=== PATIENT | female | born 1990 | race Hispanic/Latino ===

== ENCOUNTER 2017-12-25 13:39 | Emergency (ER) | payer SELFPAY ==
[2017-12-25 14:28] LABS: #Basophils 0.1 thou/uL (0.0-0.2); #Eosinphils 0.1 thou/uL (0.0-0.7); #Lymphocytes 2.5 thou/uL (1.20-3.40); #Monocytes 0.9 thou/uL (0.11-0.59); #Neutrophils 6.8 thou/uL (1.40-6.50); %Basophils 1.1 % (0.0-1.0); %Eosinophils 0.7 % (0.0-10.0); %Lymphocytes 23.9 % (21.0-51.0); %Monocytes 8.4 % (0.0-10.0); Hemoglobin 14.4 g/dL (12.0-16.0); Mean Corpuscular HGB CONC 36.2 g/dL (32.0-36.0); Mean Corpuscular Hemoglobin 30.2 pg (27.0-31.0); Mean Corpuscular Volume 83.6 fL (78.0-98.0); Mean Platelet Volume 6.5 fL (7.4-10.4); Platelet Count 257 thou/uL (130-400); RBC Distribution Width 11.9 % (11.5-14.5); Red Blood Cell (RBC) Count 4.78 mill/uL (4.20-5.40); White Blood Cell (WBC) Count 10.4 thou/uL (4.8-10.8)
[2017-12-25 14:49] LABS: ALT (SGPT) 42 U/L (8-55); AST (SGOT) 23 U/L (5-34); Albumin 4.6 g/dL (3.5-5.0); Alkaline Phosphatase 61 U/L (40-150); Anion Gap 9 mmol/L (10-20); BUN (Urea Nitrogen) 7 mg/dL (7.0-18.7); Bilirubin, Total 0.6 mg/dL (0.2-1.2); Calc. Creatinine Clearance 0 mL/min (70-130); Calcium 9.7 mg/dL (7.8-10.44); Carbon Dioxide 27 mmol/L (22-29); Chloride 107 mmol/L (98-107); Estimated GFR-MDRD Greater than 90; Globulin 2.5 g/dL (2.4-3.5); Glucose 96 mg/dL (70-105); Potassium 3.6 mmol/L (3.5-5.1); Protein, Total 7.1 g/dL (6.0-8.3); Sodium 139 mmol/L (136-145)
[2017-12-25 15:25] LABS: Bilirubin Negative (Negative); Blood, Urine Negative (Negative); Clarity CLEAR (Clear); Glucose, Urine (Dipstick) Negative (Negative); Leukocyte Negative (Negative); Nitrite Negative (Negative); Protein, Urine (Dipstick) Negative (Neg-Trace); Specific Gravity, Urine 1.005 (1.002-1.036); Urobilinogen 0.2 mg/dL (0.2-1.0); pH, Urine 6.5 (5.0-9.0)
--- NOTE | 2017-12-25 15:35 | ULT ---
TRANSABDOMINAL PELVIC ULTRASOUND WITH [place]RIAGA SCALE AND COLOR FLOW AND SPECTRAL DOPPLER: HISTORY: Abdominal pain, cramping, and vaginal bleeding. FINDINGS: A single live intrauterine gestation is seen with measurements corresponding an estimated gestational age of 6 weeks and GERI of 08/20/18. The crown-rump length measures 0.31 cm, gestational sac diameter is 1.31 cm, and yolk sac diameter is 0.31 cm. heart rate measures 102 b.p.m. A small subchori onic hemorrhage is seen. The right ovary is normal and demonstrates flow of the left ovary is not vi sualized. No free fluid is seen in the cul-de-sac. IMPRESSION: 1. Single live intrauterine of 6 weeks estimated gestational age and estimated date of del moreno at 08/20/18. 2. Small subchorionic hemorrhage. POS: [facility]
== END 2017-12-25 16:09 | disposition home or self-care (01) ==
LOC: ERS 13:39
DX: O20.0 Threatened abortion (principal); Z3A.10 10 weeks gestation of pregnancy
CPT/HCPCS: 36415; 76856; 80053; 81003; 84702; 85025; 86900; 86901; 93976; 99284

== ENCOUNTER 2018-05-04 08:28 | Day surgery (SDC) | payer OTHER ==
[2018-05-04 09:02] VITALS: BMI 25.7
--- NOTE | 2018-05-04 09:25 | PDOC.LDHP ---
Labor and Delivery H&P Chief complaint: abdominal pain ("pressure"), other (Low back pain) HPI: 28 yo @ 24.3 by 6 week US presents for cc of abdominal pain described as pressure like and occasionally sharp. Also reports dysuria, no frequnecy or urgency. No discharge. Reports pos movement. Denies NVDC, fever, chills, cp, sob. Has occasional headache. No scotoma. ROS: Gen: Denies fever chills HEENT: Occasional headache CV: Denies CP Respiratory: Denies SOB, denies cough Abd: reports abd pain, denies NVDC MSK: Reports low back pain Ob: Pos movement, no LOF, no discharge Current gestational age (weeks): 24 (24+3) Due date: 08/20/18 Dating criteria: first trimester ultrasound Grav: 3 Para: 2 Current complications: none Abnormal US findings: No Past Medical History: None Current medications: none Previous surgical history: none Allergies/Adverse Reactions: Allergies Allergy/AdvReac Type Severity Reaction Status Date / Time No Known Allergies Allergy Verified 05/04/18 09:00 Social history: none - Physical Exam Vital signs reviewed and normal: yes General: NAD, resting Heart: RRR Lungs: CTAB Abdomen: NTTP Extremeties: no edema FHT: category 1, variability present [place] contractions every: None - OB Labs Blood type: O RH: positive Antibody Screen: negative HIV: negative RPR: negative HEPSAg: negative 1 hour GCT: unknown GBS: unknown Urine drug screen: not done Rubella: immune - Plan Plan: observation in L&D -: 1) Dysuria: - UA pending rx as indicated, if questionable results will send for ur culture 2) Headache: - VSS normotensive no severe signs - tylenol 500mg X1 3) abdominal pain: - FHTs reassuring bl 140s mod variability and pos accels - no ctx on monitor - cont external monitoring - cervical exam C/T/H - UA pending Dispo: FHTs reassuring and pt stable. Will Give tylenol for pain and plan for DC to home with OP f/u. Rx for UTI if UA suspicious for infection. Addendum - Attending - Attending Attestation Date/Time: 05/04/18 4443 I personally evaluated the patient and discussed the management with Dr. De Paz. I agree with the History, Examination, Assessment and Plan documented above.
[2018-05-04] MEDS ORDERED: Acetaminophen 500 MG TAB PO SCH (09:45)
[2018-05-04 09:50] LABS: Bilirubin Negative (Negative); Blood, Urine Negative (Negative); Clarity CLOUDY (Clear); Glucose, Urine (Dipstick) Negative (Negative); Leukocyte Negative (Negative); Nitrite Negative (Negative); Protein, Urine (Dipstick) Negative (Neg-Trace); Specific Gravity, Urine 1.014 (1.002-1.036); Urobilinogen 0.2 mg/dL (0.2-1.0)
== END 2018-05-04 10:30 | disposition home or self-care (01) ==
LOC: L&D/OP 08:28
PROVIDERS: ATTEND Obstetrics & Gynecology
DX: O99.89 Other specified diseases and conditions complicating pregnancy, childbirth and the puerperium (principal); R10.9 Unspecified abdominal pain; R30.0 Dysuria; M54.5 Low back pain; R51 Headache; Z3A.24 24 weeks gestation of pregnancy
CPT/HCPCS: 81003; 99283

== ENCOUNTER 2018-06-09 09:01 | Day surgery (SDC) | payer OTHER ==
[2018-06-09 09:26] VITALS: BP 127/79; TEMP 98.6; BMI 27.1
--- NOTE | 2018-06-09 12:58 | ULT ---
BIOPHYSICAL PROFILE: HISTORY: Premature rupture of membranes. FINDINGS: Real-time imaging of the pelvis shows a single viable intrauterine in cephalic presentation . The placenta is anterior in location. The amniotic fluid index is 14.4. heart rate is 152 b.p.m. Placenta is anterior in location. biophysical profile score is as follows: tone 2. breathing 2. movements 2. Amniotic fluid 2. IMPRESSION: Biophysical profile score 8 of a possible 8. POS: [facility]
--- NOTE | 2018-06-09 17:25 | PRG ---
DATE OF SERVICE: 06/09/2018 OB ER ENCOUNTER PRIMARY OB: clinic. CHIEF COMPLAINT: Vaginal bleeding. HISTORY OF PRESENT ILLNESS: The patient is a 28-year-old, G3, P2, female with an intrauterine at 29 weeks and 5 days, who is presenting to Labor and Delivery with 2-day history of intermittent vaginal bleeding when she would wipe to go to the bathroom with urination. The patient reports that she had experienced this yesterday morning and then it had stopped and it began started again this morning when she went to the bathroom and came for evaluation. The patient denies recent intercourse in the last few days. She denies trauma or falls. She denies any knowledge of placenta previa. She denies abdominal pains. She denies change in discharge. She does report she was recently diagnosed with bacteriuria with urinary tract infection and was placed on Keflex. The patient reports no flank pain on the left side. PAST MEDICAL HISTORY: She has had kidney stone 5 years ago. PAST SURGICAL HISTORY: Negative. OBSTETRIC HISTORY: She has had two-term vaginal deliveries. SOCIAL HISTORY: Denies drug, alcohol, or tobacco use. MEDICATIONS: Currently on, 1. Keflex 500 mg 3 times a day. 2. Zantac 150 mg daily. 3. Zofran 4 mg as needed for nausea. ALLERGIES: NO KNOWN DRUG ALLERGIES. OB LABORATORY DATA: Blood type is O positive. Antibody screen is negative. HIV is negative. RPR is nonreactive, and GBS is unknown. REVIEW OF SYSTEMS: The patient denies fever, chills, sweats, chest pain, palpitations, or syncope. Denies shortness of breath or wheezing. Denies constipation, diarrhea, or vomiting. Reports some nausea. Denies headache or difficulty ambulating. Denies loss of fluid, recent trauma, painful contractions, fever, chills, or night sweats. PHYSICAL EXAMINATION: VITAL SIGNS: Blood pressure 127/79, heart rate of 81, respiratory rate of 16, and temperature 98.6. GENERAL: She appears to be in no acute distress. She is alert, oriented, cooperative, and pleasant to interact with. HEAD: Normocephalic and atraumatic. LUNGS: Clear to auscultation bilaterally. HEART: Has regular rate and rhythm without murmurs, gallops, or rubs. ABDOMEN: Gravid, nontender to palpation. No suprapubic tenderness. No right upper quadrant tenderness. No left-sided CVA tenderness. She does have some paravertebral muscular tenderness in her upper lumbar region reproducing the pain on palpation. : She has vulva without masses, lesions, or erythema. Perineum is dry and no evidence of bleeding. On vaginal exam, patient does have more discharge than expected, greenish in color, and cervix appears friable, though not bleeding and very soft. On digital exam, cervix was closed. EXTREMITIES: Nontender and nonedematous. heart tracing baseline is noted to be in the 140s with moderate long-term variability, positive 15 x 15 accelerations, no decelerations,and tocometer does not show any consistent contraction pattern. VP3 was collected and found to be negative for Trichomonas, Gardnerella, and Kandi. GC chlamydia was also collected and is pending. Ultrasound was performed with a BPP of 88, anterior placenta, no evidence of previa. In reviewing the records, the patient was noted to have a urine culture done here about a week or two ago with urine culture significant for E. coli sensitive to cephalosporins. ASSESSMENT AND PLAN: The patient is a 28-year-old, G3, P2, female with an intrauterine at 29 weeks and 5 days, who is presenting with intermittent vaginal bleeding. There is no evidence of placental abnormality and no previa. There is no evidence of blood in the vaginal vault when evaluated. No evidence of labor or other specific infection. GC chlamydia is pending. The patient is currently on Keflex for recently diagnosed urinary tract infection. The patient has been given reassurance and has been counseled to continue her antibiotic use, to follow up with her primary OB in few days as scheduled, and has been given labor precautions. Job ID: [id number]
[2018-06-12 20:38] LABS: Chlamydia by PCR Not Detected (NotDetected); GC by PCR Not Detected (NotDetected)
== END 2018-06-09 12:36 | disposition home or self-care (01) ==
LOC: L&D/OP 09:01
PROVIDERS: ATTEND Obstetrics & Gynecology
DX: O46.93 Antepartum hemorrhage, unspecified, third trimester (principal); O23.43 Unspecified infection of urinary tract in pregnancy, third trimester; B96.20 Unspecified Escherichia coli [E. coli] as the cause of diseases classified elsewhere; Z3A.29 29 weeks gestation of pregnancy; Z79.899 Other long term (current) drug therapy
CPT/HCPCS: 76819; 87480; 87491; 87510; 87591; 87660; 99285

== ENCOUNTER 2018-08-02 12:46 | Day surgery (SDC) | payer OTHER ==
--- NOTE | 2018-08-02 12:50 | PDOC.FPROB ---
FMR OB H&P: HPI - History of Present Illness Chief Complaint: elevated BP w/ YU and blurry vision Indentification: History of Present Illness: Patient is a 28YO @ 37.3 weeks who was sent over from [facility] today after having 3 elevated BP readings with associated headache and spotty vision. Per the patient, she began having headaches on Wednesday with associated bright lights in her vision and lightheadedness. She also endorses some associated nausea but no vomiting. The patient reports the pain as 7/10 in severity & says the headaches have been episodic in nature lasting anywhere from 1-1.5 hours. She reports some relief with tylenol. She denies any h/o headaches or migraine headaches. The patient also reports regular movement as well as vaginal pressure and feeling contractions on and off since last night. Says they come and go in waves and reports feelings some at the time of exam. She denies any vaginal pain or loss of fluid. Also endorses scant mucoid, bloody discharge upon urination since getting to L&D but also reports having a cervical check in clinic today. She denies any fever/chills, dysuria, or hematuria. [facility] H&P: Current - Care : 3 Para: 2001 Gestational age: 37.3 Due date: 08/20/18 Dating Criteria: 6 week sono Course/Complications: subchorionic hemorrhage in 1st trimester third trimester bleeding, resolved - OB Labs Blood type: O RH: positive Antibody Screen: negative HIV: negative RPR: negative HepBsAg: negative Rubella: immune Quad screen: negative Gonorrhea: negative Chlamydia: negative Pap Smear: 12/29/2017 NILM 1 hour gtt: 103 GBS: negative H&H: 11.0/31.7 on 05/26/18 Platelets: 217 on 05/26/18 - Anatomy Survey Anatomy survey: WN FMR OB H&P: History - Past Medical History PMH: GERD - OB History OB History: 2 full term SVDs - 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 - Family History Family History: + DM in father FMR OB H&P: Medications - Current Home Medications: Medication Instructions Recorded Confirmed Type No122/Iron/Folic Acid 1 capsule PO DAILY 08/02/18 08/02/18 History [ Multi Tablet] Allergies/Adverse Reactions: Allergies Allergy/AdvReac Type Severity Reaction Status Date / Time No Known Allergies Allergy Verified 08/02/18 13:15 FMR OB H&P: ROS - Review of Systems General: reports: fatigue. denies: fever/chills, weight/appetite/sleep changes Eyes: reports: vision changes, scotomas. denies: eye pain, double vision, floaters ENT: denies: nasal congestion, sinus pain/pressure, sore throat Cardiovascular: denies: chest pain, palpitation, edema Respiratory: denies: cough, shortness of breath Gastrointestinal: denies: abdominal pain, cramping, nausea, vomiting, diarrhea, constipation Genitourinary (Female): reports: vaginal discharge (scant mucoid, bloody discharge), contractions, vaginal pressure. denies: dysuria, hematuria, vaginal pain, vaginal bleeding Neurologic: reports: headache, other (lightheadedness). denies: syncope Hematologic/Lymphatic: denies: prolonged or excessive bleeding FMR OB H&P: Vital Signs - Maternal Vital signs: BP: 141/94 HR: 87 O2 sat: 100% on RA - Heart Tones Baseline: 140 Variability: moderate Acceleration: present Deceleration: absent [place] contractions every: 5-7 minutes FMR OB H&P: Physical Exam - Physical Exam General: NAD, awake, alert and oriented HEENT: normocephalic and atraumatic, grossly normal vision, grossly normal hearing Neck: supple, FROM Heart: RRR, normal S1/S2, no murmurs/rubs/gallops, pulses present, no edema General: CTAB, no respiratory distress, good air movement, no rales/rhonchi, no wheezing, no retractions Abdomen: gravid, non-tender, bowel sound present Musculoskeletal: pulses present, FROM in all four extremities Neurological: cranial nerves II through XII intact, sensation to pain,touch and proprioception grossly normal, no focal deficit Skin: no rash, good tugor Lymphatic: no unusual bruising or bleeding, no purpura, no petechia Psychiatric: intact recent and remote memory, good judgement and insight, normal mood and affect FMR OB H&P: Results - Labs Lab results: Laboratory Tests 08/02/18 08/02/18 08/02/18 13:54 13:54 14:03 WBC 10.1 Hgb 11.4 L Hct 33.9 L Plt Count 219 Creatinine 0.65 Uric Acid 4.1 AST 20 ALT 18 U Random Total Protein Less than 10 Urine Creatinine 26.68 L FMR OB H&P: A/P - Problem List (1) Elevated blood pressure affecting in third trimester, antepartum Current Visit: Yes Status: Acute Code(s): O16.3 - UNSPECIFIED MATERNAL HYPERTENSION, THIRD TRIMESTER (2) Third trimester Current Visit: Yes Status: Acute Code(s): Z34.93 - ENCNTR FOR SUPRVSN OF NORMAL PREG, UNSP, THIRD TRIMESTER (3) Subchorionic hemorrhage in first trimester Current Visit: Yes Status: Acute Code(s): O41.8X10 - OTH DISRD OF AMNIOTIC FLUID AND MEMBRNS, FIRST TRI, UNSP; O46.8X1 - OTHER ANTEPARTUM HEMORRHAGE, FIRST TRIMESTER Disposition: Elevated BP readings in : - Patient sent over from [facility] for 3 elevated BP readings. Protein:creatinine urine ratio negative here. - CBC, CMP, & uric acid also WNLs. - BPP 8/8 w/ MARTI of 7.7 and EFW of 2,973g. Umbilical artery dopplers & anterior placenta WNLs. Cervical length 3.4 & fetus noted to be in vertex position. - All BPs normal over course of last 4 hours w/ exception of initial BP reading just over at 141 systolic. - Labor and pre-e precautions given and patient cleared for d/c home w/ follow- up in clinic on 07/16/18. sIUP third trimester: - Patient is at 37.3 weeks today by 6 week sono done in the ED. h/o third trimester bleeding: - Aware, patient was seen in May on L&D for vaginal bleeding but has had none since. h/o subchorionic hemorrhage: - Aware, found on 6 week sono done in the ED. Discussion: Date/Time: 08/02/18 6777 This H&P was discussed with Dr. Walter and Dr. Ramsey who agree with the above documentation and plan. Addendum - Attending - Attending Attestation Date/Time: 08/02/18 1621 I personally evaluated the patient and discussed the management with Dr. Maldonado and Dr. Walter I agree with the History, Examination, Assessment and Plan documented above with any addition or exceptions noted below. 28 yo female at 37.3 wks by 6.0 wk sono here for hypertension in workup. Patient presented to clinic today and noted to have 3 elevated BP readings. Reported intermittent headaches over the weekend with visual changes. At present denies headache, visual changes, SOB, CP, N/V, wt changes, or edema. No prior history of hypertension in . VS reviewed. BP have been normal range except 2 mild range pressures. FHT reactive, cat 1. Ctx intermittent. Sono images reviewed. Cephalic. Anterior placenta. EFW = 2973 g (26% per Hadlock ). BPD = 3%, HC = 1%, FL = 4%. BPP 8/8. S/D ratio = 2.24. MARTI = 7.7 cm. Labs reviewed. Pro/Cr ratio < 0.3. CBC, CMP WNL for gestation. Uric Acid = 4.1 Will continue to monitor blood pressure and symptoms for total of 4 hours on bed rest. If patient has repeat elevated mild range BP she would meet criteria for gHTN. Would keep for IOL if this is the case. Millicent
[2018-08-02 13:20] VITALS: BMI 26.1
[2018-08-02 14:04] LABS: #Eosinphils 0.2 thou/uL (0.0-0.7); #Lymphocytes 2.4 thou/uL (1.20-3.40); #Monocytes 0.7 thou/uL (0.11-0.59); #Neutrophils 6.9 thou/uL (1.40-6.50); %Basophils 0.4 % (0.0-1.0); %Eosinophils 1.6 % (0.0-10.0); %Lymphocytes 23.3 % (21.0-51.0); %Monocytes 6.6 % (0.0-10.0); %Neutrophils 68.1 % (42.0-75.0); Hemoglobin 11.4 g/dL (12.0-16.0); Mean Corpuscular HGB CONC 33.6 g/dL (32.0-36.0); Mean Corpuscular Hemoglobin 25.9 pg (27.0-31.0); Mean Corpuscular Volume 77.3 fL (78.0-98.0); Mean Platelet Volume 8.8 fL (7.4-10.4); Platelet Count 219 thou/uL (130-400); RBC Distribution Width 12.8 % (11.5-14.5); Red Blood Cell (RBC) Count 4.38 mill/uL (4.20-5.40); White Blood Cell (WBC) Count 10.1 thou/uL (4.8-10.8)
[2018-08-02 14:34] LABS: ALT (SGPT) 18 U/L (8-55); AST (SGOT) 20 U/L (5-34); Albumin 3.6 g/dL (3.5-5.0); Alkaline Phosphatase 228 U/L (40-150); Anion Gap 10 mmol/L (10-20); BUN (Urea Nitrogen) 7 mg/dL (7.0-18.7); Bilirubin, Total 0.2 mg/dL (0.2-1.2); Calc. Creatinine Clearance 140 mL/min (70-130); Calcium 9.1 mg/dL (7.8-10.44); Carbon Dioxide 22 mmol/L (22-29); Chloride 106 mmol/L (98-107); Estimated GFR-MDRD Greater than 90; Glucose 69 mg/dL (70-105); Potassium 3.6 mmol/L (3.5-5.1); Protein, Total 6.6 g/dL (6.0-8.3); Sodium 134 mmol/L (136-145); Uric Acid 4.1 mg/dL (2.6-6.0)
[2018-08-02 14:49] LABS: Creatinine, Urine 26.68 mg/dL (47-110); Protein, Urine Random Quant Less than 10 mg/dL (1-14)
--- NOTE | 2018-08-02 16:00 | ULT ---
OB ULTRASOUND ULTRASOUND NONSTRESS BIOPHYSICAL PROFILE UMBILICAL DOPPLER: HISTORY: IUGR umbilical Dopplers, growth. COMPARISON: Nonstress biophysical profile 06/09/2018. FINDINGS: Single intrauterine gestation with vertex presentation. Cervical length is 3.4 cm. There appears to be an anterior placenta. The presence or absence of previa cannot be assessed on this exam. heart tones with a rate between 143 and 149 b.p.m. BIOMETRY: BPD 8.59 cm, 34 weeks 4 days Head circumference 31.62 cm, 35 weeks 4 days Abdominal circumference 33.83 cm, 37 weeks 5 days Femur length 6.90 cm, 35 weeks 3 days Estimated weight is 2973 gm +/- 440 gm. Average age by sonography is 35 weeks 6 days. Estimated delivery date is 08/31/2018. LMP is 11/09/2017. Clinical age is 38 weeks 0 days. Estimated delivery date by clinical age is 019. Amniotic fluid index is 7.7 cm. NONSTRESS BIOPHYSICAL PROFILE: Tone: 2. breathin. movement: 2. Amniotic fluid: 2. Total Score: 8 out of 8. UMBILICAL DOPPLER: Cord insertion: Peak systolic is 25.7 cm/s, end diastolic is 11.9 cm/s, SD ratio is 2.16. Mid cord: Peak systolic is 45.1 cm/s, end diastolic 20.1 cm/s, SD ratio is 2.24. Fetus: Peak systolic is 26.3 cm/s, end-diastolic is 9 cm/s, SD ratio is 2.92. IMPRESSION: 1. Umbilical artery ratios as above. 2. Nonstress biophysical profile with a total score of 8 out of 8. 3. Amniotic fluid index of 7.7 cm, which is close to the 5th percentile. 4. Single intrauterine gestation with heart tones. Average by sonography is 35 weeks 6 days. Estimated weight as above. POS: [facility]
== END 2018-08-02 17:23 | disposition home or self-care (01) ==
LOC: L&D/OP 12:46
PROVIDERS: ATTEND Family Medicine
DX: O16.3 Unspecified maternal hypertension, third trimester (principal); O99.613 Diseases of the digestive system complicating pregnancy, third trimester; K21.9 Gastro-esophageal reflux disease without esophagitis; Z3A.37 37 weeks gestation of pregnancy; Z79.899 Other long term (current) drug therapy
CPT/HCPCS: 36415; 76700; 76805; 76819; 80053; 82570; 84156; 84550; 85025; 99285

== ENCOUNTER 2018-08-09 05:19 | Inpatient (IN) | payer MEDICAID, OTHER, SELFPAY ==
[2018-08-09] MEDS ORDERED: Lidocaine 1% (PF) 30 ML VIAL SC PRN (05:40)
[2018-08-09] MEDS ORDERED: Ondansetron PF 4 MG/2 ML Vial IVP PRN ×2 (05:40→07:09)
[2018-08-09] MEDS ORDERED: Promethazine HCl 25 MG/ML VIAL IM PRN ×2 (05:40→07:09)
--- NOTE | 2018-08-09 05:44 | PDOC.FPROB ---
FMR OB H&P: HPI - History of Present Illness Chief Complaint: Contractions Indentification: 28 yo @38.3 by 6 week US History of Present Illness: 28 yo @38.3 by 6 week US presenting for contractions that started this morning around 0300, she came in when contractions were 3min apart. Denies LOF, VB. Endorses FM. She was seen 08/02 for elevated BPs in clinic 148/92, 150/100, 142/98. Pre-E workup neg at that time. Pt has elevated initial BP 141/100. Denies Headache, vision changes, RUQ pain, edema, SOB. She desires epidural. Primary Care Physician: Dr Ramires FMR OB H&P: Current - Care : 3 Para: 2 Gestational age: 38.3 Due date: 08/20/2018 Dating Criteria: 6wk US Course/Complications: subchorionic hemorrhage in 1st trimester third trimester bleeding, resolved - OB Labs Blood type: O RH: positive Antibody Screen: negative HIV: negative RPR: negative HepBsAg: negative Rubella: immune Urine drug screen: not done Pap Smear: 12/29/2017 NILM 1 hour gtt: 103 GBS: negative H&H: 11.4/33.9 on 08/02/18 Platelets: 219 on 08/02/18 - Anatomy Survey Anatomy survey: normal FMR OB H&P: History - Past Medical History PMH: GERD - OB History OB History: 2 full term SVDs - GROCERY SUPERVISOR History GROCERY SUPERVISOR History: Pap in December 2017 NILM - Social History Social History: Denies tobacco, alcohol or drug use. - Family History Family History: DM in father FMR OB H&P: Medications - Current Home Medications: Medication Instructions Recorded Confirmed Type No122/Iron/Folic Acid 1 capsule PO DAILY 08/02/18 08/09/18 History [ Multi Tablet] Allergies/Adverse Reactions: Allergies Allergy/AdvReac Type Severity Reaction Status Date / Time No Known Allergies Allergy Verified 08/09/18 06:17 FMR OB H&P: ROS - Review of Systems General: denies: fever/chills, fatigue Eyes: denies: vision changes, double vision, scotomas, floaters ENT: denies: nasal congestion, sore throat Cardiovascular: denies: chest pain, edema Respiratory: denies: congestion, shortness of breath Gastrointestinal: denies: nausea, vomiting Genitourinary (Female): reports: contractions. denies: dysuria, vaginal discharge, vaginal bleeding Integumentary: denies: itching, rash FMR OB H&P: Vital Signs - Maternal Vital signs: Selected Entries 08/09/18 05:40 Pulse Rate 90 Blood Pressure 131/84 [Semi-Fowlers] Respiratory 20 Rate - Heart Tones Baseline: 140 Variability: moderate Acceleration: present Deceleration: absent Category: category 1 [place] contractions every: 2-3min FMR OB H&P: Physical Exam - Physical Exam General: awake, alert and oriented, other (Obvious distress with contractions) HEENT: normocephalic and atraumatic, MMM, grossly normal hearing, oropharynx clear Neck: supple, trachea midline Heart: RRR, no murmurs/rubs/gallops General: CTAB, no respiratory distress Abdomen: soft, gravid, non-tender, bowel sound present Skin: no rash, good tugor Psychiatric: intact recent and remote memory, good judgement and insight, normal mood and affect - Pelvic Exam SVE: /-2 Membranes: Intact Estimated Weight: 7 lbs FMR OB H&P: A/P - Problem List (1) Elevated blood pressure affecting in third trimester, antepartum Current Visit: No Status: Acute Code(s): O16.3 - UNSPECIFIED MATERNAL HYPERTENSION, THIRD TRIMESTER (2) Subchorionic hemorrhage in first trimester Current Visit: No Status: Acute Code(s): O41.8X10 - OTH DISRD OF AMNIOTIC FLUID AND MEMBRNS, FIRST TRI, UNSP; O46.8X1 - OTHER ANTEPARTUM HEMORRHAGE, FIRST TRIMESTER (3) Third trimester Current Visit: No Status: Acute Code(s): Z34.93 - ENCNTR FOR SUPRVSN OF NORMAL PREG, UNSP, THIRD TRIMESTER Disposition: 28 yo @38.3 by 6 week US presenting in active labor sIUP, in active labor - NST reactive - SVE /-2 - FHTs 140 Cat 1 - Pt desires epidural, anesthesia consulted and labs sent - Continue serial cervical checks Elevated BP readings in - Initial BP elevated 141/100, now 114/69 - PreE work up negative on 08/02/18 - 08/02: BPP 8/8. MARTI of 7.7. EFW of 2,973g. Umbilical artery dopplers & anterior placenta WNLs. Cervical length 3.4 & fetus noted to be in vertex position. h/o third trimester bleeding - Seen in May on L&D for vaginal bleeding but has had none since h/o subchorionic hemorrhage - Found on 6 week US done in ED Discussion: Date/Time: 08/09/18 0572 This H&P was discussed with [] and [] who agree with the above documentation and plan. Addendum - Attending - Attending Attestation Date/Time: 08/09/18 1112 I personally evaluated the patient and discussed the management with Dr. Macario I agree with the History, Examination, Assessment and Plan documented above with any addition or exceptions noted below - 28 yo female @ 38 3/7 weeks presented c/o ctx. (+)FM, Denies VB/LOF. Afebrile VSS SVE 6/80/-2 BBOW. Category 1 FHTs. [place]- ctx q3 min. A/P: 1) IUP@ 38 3/7 weeks in active labor- Admit to L&D. Ressuring FHTs.
[2018-08-09 06:15] LABS: Hemoglobin 12.3 g/dL (12.0-16.0); Mean Corpuscular HGB CONC 33.7 g/dL (32.0-36.0); Mean Corpuscular Volume 77.1 fL (78.0-98.0); Mean Platelet Volume 9.8 fL (7.4-10.4); Platelet Count 198 thou/uL (130-400); RBC Distribution Width 13.3 % (11.5-14.5); Red Blood Cell (RBC) Count 4.74 mill/uL (4.20-5.40); White Blood Cell (WBC) Count 8.5 thou/uL (4.8-10.8)
[2018-08-09 06:37] VITALS: BMI 27.1
[2018-08-09] MEDS ORDERED: Fentanyl 4 mcg/Bup 0.1% Cadd 100 ML ONE (06:39)
[2018-08-09 06:53] LABS: HBSAg Index 0.28 S/CO (0-0.99); Hep B Surf Ag Non-Reactive S/CO (NonReactive); Syphilis Antibody Nonreactive (Nonreactive); Syphilis Antibody Index 0.04 S/CO (<1.00 Non-Reactive)
[2018-08-09] MEDS ORDERED: ePHEDrine/0.9% NaCl/PF SYRINGE 50 mg/10 ml SLOW IVP PRN (07:09)
[2018-08-09] MEDS ORDERED: Lactated Ringer's 500 ML IV PRN (07:09)
[2018-08-09] MEDS ORDERED: Acetaminophen 325 MG TAB PO PRN (07:09)
[2018-08-09] MEDS ORDERED: Naloxone HCl 0.4 mg/ml Vial IVP PRN ×2 (07:09)
[2018-08-09] MEDS ORDERED: Eucerin (Mineral Oil/Petrolatum,White) 30 gm Jar TOP PRN (07:09)
[2018-08-09] MEDS ORDERED: diphenhydrAMINE 50 MG/ML VIAL IVP PRN (07:09)
[2018-08-09] MEDS ORDERED: Fentanyl 4 mcg/Bupivacaine 0.1% Cassette 100 ML EPIDURAL SCH (07:15)
[2018-08-09] MEDS ORDERED: Communication Order-Pharmacy FS SCH (07:15)
[2018-08-09] MEDS ORDERED: Lactated Ringer's 1,000 ML IV SCH (07:15)
[2018-08-09] MEDS ORDERED: Misoprostol 200 MCG TAB ONE (07:46)
[2018-08-09] MEDS ORDERED: Carboprost 250 MCG/ML AMP ONE (07:46)
[2018-08-09] MEDS: NS / Oxytocin 40 units/1000ml 1,000 ML IV PRN ×2 (08:05→09:09)
--- NOTE | 2018-08-09 08:19 | PDOC.OPDEL ---
OB Operative/Delivery Note Delivery Dr/Surgeon: Dr. Misty Maldonado Assist: Dr. Kana Bauer Pre-Delivery Diagnosis: active labor Procedure/Post Delivery Dx: spontaneous vaginal delivery Weeks gestation: 38 (38.3) Anesthesia: epidural - Additional Findings/Plan Placenta delivered: spontaneous Repaired Obstetrical Laceration: none Estimated blood loss: 155mL Compilations/Other Findings: Delivering Physician: Dr. Misty Maldonado Attending: Dr. Krys Ramires Procedure: Spontaneous Vaginal Delivery Anesthesia: epidural QBL: 155 ml Pre-op Diagnosis: 1. Term intrauterine in labor 2. Elevated BP readings in 3. h/o third trimester bleeding 4. h/o subchorionic hemorrhage Post-op Diagnosis: 1. Term intrauterine , delivered 2. same as above 3. same as above 4. same as above Indications: A 28 y/o female presents in active labor. Delivery Note: This is 28yo F @ 38.3 wks who delivered a viable M infant at 0739. Following an uneventful antepartum course, a vigorous male was delivered over an intact perineum in the occipitoanterior position. Anterior Shoulder and then remainder of the body delivered. No nuchal cord. The head was held down and mouth and nares were bulb suctioned. Cord clamped after delayed cord clamping and cut and cord blood collected. Placenta delivered intact in the [place] presentation with a 3 vessel cord noted. Fundal massage was performed and the fundus was firm. However, on bimanual massage the lower uterine segment was noted to be boggy. The lower uterine segment was evacuated of all clots and quickly gained adequate tone. The cervix and vagina were then inspected and found to be free of lacerations. Infant went to nursery in good condition for routine care. Apgars were 8/9 at 1 & 5 minutes, respectively. Patient tolerated delivery well and went to after routine recovery/care. Post delivery plan: routine recovery Addendum - Attending - Attending Attestation Date/Time: 08/09/18 1117 I was present and supervised the of a viable male infant over an intact perineum. Apgars 8/9. No nuchal cord. Placenta delivered spontaneously and intact. 3V cord. No epis or laceration. QBL = 155mL.
[2018-08-09] MEDS ORDERED: Acetaminophen 500 MG TAB PO PRN (11:00)
[2018-08-09] MEDS ORDERED: NS / Oxytocin 40 units/1000ml 1,000 ML IV SCH (11:00)
[2018-08-09] MEDS ORDERED: Methylergonovine 0.2 MG/ML VIAL IM PRN (11:00)
[2018-08-09] MEDS ORDERED: Bisacodyl 10 MG SUPP PR PRN (11:00)
[2018-08-09] MEDS ORDERED: Milk Of Magnesia 30 ML UDCUP PO PRN (11:00)
[2018-08-09] MEDS ORDERED: Misoprostol 200 MCG TAB VAG PRN (11:00)
[2018-08-09] MEDS ORDERED: Lanolin Ointment 7 GM TUBE TOP PRN (11:00)
[2018-08-09] MEDS ORDERED: Bupivacaine/Epinephrine 0.25% 30 ML VIAL ONE (11:11)
[2018-08-09] MEDS: Lactated Ringer's 1,000 ML IV SCH ×2 (11:56→14:19)
[2018-08-09] MEDS: Ibuprofen 800 MG TAB PO SCH ×2 (14:06→21:00)
[2018-08-09] MEDS: Ferrous Sulfate 325 MG TAB PO SCH (16:32)
[2018-08-09] MEDS: Docusate Calcium (SURFAK) 240 MG CAP PO SCH (21:01)
[2018-08-10] MEDS: Ibuprofen 800 MG TAB PO SCH ×2 (05:26→13:48)
[2018-08-10] MEDS: Lactated Ringer's 1,000 ML IV SCH ×2 (05:28→07:33)
[2018-08-10 06:12] VITALS: TEMP 98.4
--- NOTE | 2018-08-10 06:58 | PDOC.OBPPN ---
FMR OB PN: Subj - Interval History Hospital Day: 2 Day: 1 Chief Complaint: No complaints this AM. Indentification: Interval History: Patient has remained stable on floor overnight w/ adequate pain control. FMR OB PN: Obj - Maternal Vital signs: BP: 112/72 HR: 71 RR: 16 Tmax: 98.4F Pox: 99% on RA Wt: 71.668 kg - Lochia Lochia: normal bloody lochia noted on exam - Pain Management Intervention: oral medication FMR OB PN: Exam - Physical Exam General: NAD, awake, alert and oriented HEENT: normocephalic and atraumatic, MMM, grossly normal vision, grossly normal hearing Neck: supple, FROM Heart: RRR, normal S1/S2, no murmurs/rubs/gallops, pulses present, no edema General: CTAB, no respiratory distress, good air movement, no rales/rhonchi, no wheezing, no retractions Abdomen: soft, fundus(cm) (firm and below umbilicus), non-tender, bowel sound present Musculoskeletal: FROM in all four extremities Neurological: cranial nerves II through XII intact (grossly intact), no focal deficit Skin: no rash, good tugor : no edema, appropriately tender Lymphatic: no unusual bruising or bleeding, no purpura, no petechia Psychiatric: intact recent and remote memory, good judgement and insight, normal mood and affect - Pelvic Exam : normal lochia FMR OB PN: A/P - Problem List (1) Term delivered Status: Acute Code(s): O80 - ENCOUNTER FOR FULL-TERM UNCOMPLICATED DELIVERY (2) Subchorionic hemorrhage in first trimester Status: Acute Code(s): O41.8X10 - OTH DISRD OF AMNIOTIC FLUID AND MEMBRNS, FIRST TRI, UNSP; O46.8X1 - OTHER ANTEPARTUM HEMORRHAGE, FIRST TRIMESTER Qualifiers: Fetus number: single or unspecified fetus Qualified Code(s): O41.8X10 - Other specified disorders of amniotic fluid and membranes, first trimester, not applicable or unspecified; O46.8X1 - Other antepartum hemorrhage, first trimester Disposition: 28YO G3 now [id number] who is PP day #1 s/p a @ 38.3 weeks. day #1 s/p - Mom reports that her pain is well controlled on current PO regimen. States bleeding is equivalent to menstrual bleeding. - Has been voiding & stooling. - States baby is doing well and breast feeding well. - Wants baby to follow-up @ [facility] for 1-2 day old visit. - Does not desire circumcision. - Anticipate possible d/c home today. Elevated BP readings in - Initial BP elevated 141/100 with another elevated BP during delivery. Pressures have been WNLs since delivery. - PreE work up negative on 08/02/18. - Will clinical counselor on Pre-e symptoms including severe headache, spotty vision, RUQ pain, chest pain, SOB and instruct mom to go to the ED should any of these symptoms occur in the 6 week period. h/o third trimester bleeding - Aware, seen in May on L&D for vaginal bleeding but has had none since. h/o subchorionic hemorrhage - Aware, found on 6 week US done in ED. Discussion: Date/Time: 08/10/18 4549 This H&P was discussed with Dr. Bauer and Dr. Ramires who agree with the above documentation and plan. Addendum - Attending - Attending Attestation Date/Time: 08/10/18 3040 I personally evaluated the patient and discussed the management with Dr. Maldonado I agree with the History, Examination, Assessment and Plan documented above with any addition or exceptions noted below - Patient without complaints. Pain well controlled. Afebrile VSS. A/P: 1) PPD#1 s/p - continue routine care. PLan to d/c home today.
[2018-08-10] MEDS: Ferrous Sulfate 325 MG TAB PO SCH (07:33)
[2018-08-10 08:13] VITALS: BP 115/70
[2018-08-10] MEDS ORDERED: Adacel (T-DAP) 0.5 ML SYRINGE IM ONE (09:00)
[2018-08-10] MEDS ORDERED: Prenatal Vitamin 1 TAB PO SCH (09:00)
[2018-08-10] MEDS: Docusate Calcium (SURFAK) 240 MG CAP PO SCH (09:44)
== END 2018-08-10 14:25 | disposition home or self-care (01) | DRG 807 ==
LOC: L&D/OP 05:19 → L&D 06:36 → 3SW 10:58
PROVIDERS: ADMIT Family Medicine; ATTEND Family Medicine
PROC: 10E0XZZ Delivery of Products of Conception, External Approach (ICD-10-PCS; principal; 2018-08-09)
DX: O16.4 Unspecified maternal hypertension, complicating childbirth (principal); Z37.0 Single live birth; Z3A.38 38 weeks gestation of pregnancy; Z87.59 Personal history of other complications of pregnancy, childbirth and the puerperium
CPT/HCPCS: 36415; 85027; 86780; 86850; 86900; 86901; 87340; 99285; J2001; J3490

== ENCOUNTER 2023-06-21 17:40 | Emergency (ER) | payer MEDICAID, SELFPAY ==
[~2023-06-21 17:40] MED LIST: Iopamidol 370 76% 100 ML VIAL ONE
[2023-06-21] MEDS ORDERED: Acetaminophen 500 MG TAB ONE (18:30)
[2023-06-21] MEDS ORDERED: Ondansetron PF 4 MG/2 ML Vial ONE (18:31)
[2023-06-21 18:46] LABS: #Basophils 0.1 thou/uL (0.0-0.2); #Neutrophils 12.8 thou/uL (1.40-6.50); %Basophils 0.4 % (0.0-1.0); %Eosinophils 0.1 % (0.0-10.0); %Lymphocytes 11.4 % (21.0-51.0); %Monocytes 6.2 % (0.0-10.0); %Neutrophils 81.5 % (42.0-75.0); Hematocrit 41.4 % (36.0-47.0); Hemoglobin 14.8 g/dL (12.0-16.0); Mean Corpuscular HGB CONC 35.7 g/dL (32.0-36.0); Mean Corpuscular Hemoglobin 28.7 pg (27.0-31.0); Mean Corpuscular Volume 80.4 fl (78.0-98.0); Mean Platelet Volume 9.4 fL (7.4-10.4); Platelet Count 309 10x3/uL (130-400); RBC Distribution Width 11.9 % (11.5-14.5); Red Blood Cell (RBC) Count 5.15 mill/uL (4.20-5.40); White Blood Cell (WBC) Count 15.7 10x3/uL (4.8-10.8)
[2023-06-21 19:13] LABS: ALT (SGPT) 41 U/L (8-55); AST (SGOT) 22 U/L (5-34); Albumin 4.5 g/dL (3.5-5.0); Alkaline Phosphatase 60 U/L (40-110); Anion Gap 14 mmol/L (10-20); BUN (Urea Nitrogen) 9 mg/dL (7.0-18.7); Bilirubin, Total 0.6 mg/dL (0.2-1.2); Calc. Creatinine Clearance 0 mL/min (70-130); Calcium 9.5 mg/dL (7.8-10.44); Carbon Dioxide 21 mmol/L (22-29); Chloride 105 mmol/L (98-107); Estimated GFR 100; Globulin 3.1 g/dL (2.4-3.5); Glucose 111 mg/dL (70-105); Lipase 49 U/L (8-78); Potassium 3.4 mmol/L (3.5-5.1); Protein, Total 7.6 g/dL (6.0-8.3); Sodium 137 mmol/L (136-145)
[2023-06-21 19:24] LABS: Bacteria/HPF None Seen HPF (None Seen); Bilirubin Negative (Negative); Blood, Urine Trace (Negative); CAUTI Indications for Culture Pelvic or flank pain; Clarity Clear (Clear); Glucose, Urine (Dipstick) Normal (Negative); Ketone, Urine 60 mg/dL (Negative); Leukocyte Negative Leu/uL (Negative); Nitrite Negative (Negative); Protein, Urine (Dipstick) Negative (Neg-Trace); RBC/HPF 0-3 HPF (0-3); Specific Gravity, Urine 1.007 (1.002-1.036); Squamous Epithelial 0-3 HPF (0-3); Urobilinogen Normal mg/dL (Less than 2); WBC/HPF 0-3 HPF (0-3)
[2023-06-21 19:25] LABS: Pregnancy Test - Urine (BHCG) Negative (Negative); Pregu Control Background? CLEAR/WHITE (CLR/WHITE); Pregu Control Bar Appear? YES (CONTROL BAR); Specific Gravity 1.007 (1.002-1.036); Urine Culture Reflex No No
[2023-06-21 19:52] LABS: SARS-CoV-2 NAA Rapid Test Not Detected (NotDetected)
[2023-06-21 21:13] LABS: Troponin I Less than 0.010 ng/mL (< 0.028)
== END 2023-06-21 23:39 | disposition home or self-care (01) ==
LOC: ERS 17:40
DX: E86.0 Dehydration (principal); B34.9 Viral infection, unspecified; Z55.6 Problems related to health literacy; Z75.3 Unavailability and inaccessibility of health-care facilities; Z75.8 Other problems related to medical facilities and other health care
CPT/HCPCS: 36415; 71045; 74177; 80053; 81001; 81025; 83605; 83690; 84484; 85025; 93005; 96361; 96374; J2405; Q9967